=== PATIENT | female | born 1980 ===

== ENCOUNTER → 2018-07-21 13:15 | Outpatient (REF) | payer OTHER, SELFPAY | LOC: LAB 13:15 | PROVIDERS: Visit Provider Physician Assistant | DX: Z87.2 Personal history of diseases of the skin and subcutaneous tissue (principal); L30.1 Dyshidrosis [pompholyx]; L29.8 Other pruritus; Z71.89 Other specified counseling; D48.5 Neoplasm of uncertain behavior of skin | CPT/HCPCS: 87070; 87205 ==